=== PATIENT | female | born 1965 | race Caucasian/White ===

== ENCOUNTER 2017-01-03 02:38 | Emergency (ER) | payer BC ==
--- NOTE | 2017-01-03 06:25 | ED ORDER SUMMARY ---
..... Patient: TOMMIE GUNTER OrderSheet [facility] VisitID: [id number] [place] [address] 51y, F Registration Date/Time: 01/03/2017 ORDER SHEET Weight: 72.5 kg (stated) Allergies: No Known Drug Allergy GENERAL ORDERS: CT Head wo Cont Urgent (03:03 01/03/2017 Jonathan CRUZ) (Ack 3:13 CHagjozef ER Agricultural Equipment Test Engineer) (4:21 Opal) CT Cervical Spine wo Cont Urgent (03:04 01/03/2017 Jonathan CRUZ) (Ack 3:13 Umer ER [employer] Equipment Test Engineer) (4:21 Opal) CBC w Diff Urgent (03:04 01/03/2017 Jonathan CRUZ) (Ack 3:13 Umer ER [employer] Equipment Test Engineer) (3:14 JQuivey R.N.) CMP Urgent (03:04 01/03/2017 Jonathan CRUZ) (Ack 3:13 Umer ER Agricultural Equipment Test Engineer) (3:14 JQuivey R.N.) UA-Culture if indicated Urgent (03:04 01/03/2017 Jonathan CRUZ) (Ack 3:13 Umer ER [employer] Equipment Test Engineer) (3:52 JQuivey R.N.) Amylase Urgent (03:04 01/03/2017 Jonathan CRUZ) (Ack 3:13 Umer ER Agricultural Equipment Test Engineer) (3:14 JQuivey R.N.) Lipase Urgent (03:04 01/03/2017 Jonathan CRUZ) (Ack 3:13 Umer ER Agricultural Equipment Test Engineer) (3:14 JQuivey R.N.) Urine Urgent (03:04 01/03/2017 Jonathan CRUZ) (Ack 3:13 Umer ER [employer] Equipment Test Engineer) (3:52 JQuivey R.N.) Urine Drug Screen Urgent (03:04 01/03/2017 Jonathan CRUZ) (Ack 3:13 Umer ER [employer] Equipment Test Engineer) (3:52 JQuivey R.N.) Ethyl Alcohol Urgent (03:04 01/03/2017 Jonathan CRUZ) (Ack 3:13 Umer ER [employer] Equipment Test Engineer) (3:14 JQuivey R.N.) MEDICATION ORDERS: IV FLUIDS: IV NS : initial bolus 1000 mL (1000 mL/hr), then 200 mL/hr for 4h (NOW); Urgent (03:04 01/03/2017 Jonathan CRUZ) (3:15 Chance Sinha) Zofran IV 8 mg (NOW) (03:04 01/03/2017 Jonathan CRUZ) (Ack 3:16 Chance Sinha) (3:19 Chance Sinha) ORDER SHEET NOTES: [Electronically signed by Иван Salgado R.N. (06:59 01/03/2017)] [Electronically signed by Parag Goel MD (15:43 01/06/2017)] [Electronically locked/signed by Иван Salgado R.N. (06:59 01/03/2017)]
--- NOTE | 2017-01-03 06:25 | ED CLINICAL REPORT ---
Clinical Report - Physicians/Mid Levels [facility] [address] [place] [address] 01/03/2017 2:41 Patient: TOMMIE GUNTER Time Seen: 02:44. Arrived- By ambulance. Historian- patient, EMS personnel and spouse. History limited by intoxication. Physical Exam limited by intoxication. HISTORY OF PRESENT ILLNESS Chief Complaint: FALL. Location of injuries- (possible loss of conciousness). [facility] Fell ("collapsed"). ([facility] parking [place]). The patient denies pain. No blow to the head or neck pain. The patient had loss of consciousness. (possibly). REVIEW OF SYSTEMS Unobtainable due to patient's altered mental status. PAST HISTORY Problems: Depression. Additional Surgeries: no known surgeries. Medications: PROzac Oral 80mg, daily. Allergies: No Known Drug Allergy. SOCIAL HISTORY Alcohol use; consumes six beers a week. (her reports that she had 6 or 7 beers tonight). FAMILY HISTORY No significant family medical history. ADDITIONAL NOTES The nursing notes have been reviewed. PHYSICAL EXAM Vital Signs: 01/03/2017 02:47 BP: 76/49. HR: 62. RR: 18. O2 saturation: 92%. Temp: 97.9 F. Pain level now: 0/10. Have been reviewed. Appearance: Alert. She appears intoxicated, has ETOH on breath and appears unkempt and older than stated age. Head: Head non-tender. No swelling of head. Eyes: Pupils equal, round and reactive to light. ENT: No dental injury. Pharynx normal. Neck: Painless ROM. Non-tender. No vertebral tenderness. CVS: Heart sounds normal. Pulses normal. Respiratory: Breath sounds normal. Abdomen: No visible injury. Soft and nontender. Bowel sounds normal. No organomegaly. No mass. Back: No tenderness. Skin: Skin warm and dry. Extremities: Pelvis stable. No lower extremity edema. LABS, X-RAYS, AND EKG EKG: Normal EKG. Rate: 62. Prior EKG unavailable. The study has been independently viewed by me. CT C-Spine: No acute disease. CT Head: No acute disease. Laboratory Tests: UA-Culture if indicated: (SAURABH: 01/03/2017 03:24) ( [facility] 01/03/2017 03:45) Final results Test Result Flag Units (Reference) URINE COLOR YELLOW URINE APPEARANCE CLEAR URINE GLUCOSE NEGATIVE (NEGATIVE) URINE BILIRUBIN NEGATIVE (NEGATIVE) URINE KETONE NEGATIVE (NEGATIVE) URINE SPECIFIC GRAVITY <= 1.005 L (1.010-1.030) URINE PH 6.0 (5.0-8.0) URINE PROTEIN NEGATIVE (NEGATIVE) URINE UROBILINOGEN 0.2 EU/dL (0.2-1.0) URINE NITRITE NEGATIVE (NEGATIVE) URINE BLOOD 1+ (NEGATIVE) URINE LEUK ESTERASE NEGATIVE (NEGATIVE) URINE RBC 0-1 rbc/hpf (0-1) URINE WBC 0-1 wbc/hpf (0-1) URINE EPITHELIAL CELLS 0-1 EPI/hpf (0-5) URINE BACTERIA NONE SEEN (NONE SEEN) URINE COMMENT CULT NOT INDICATED URINE CULTURES ARE SET-UP BASED ON THE FOLLOWING CRITERIA:POSITIVE NITRITEPOSITIVE LEUKOCYTE ESTERASEGREATER THAN 10 WHITE BLOOD CELLSMODERATE (2+) OR GREATER BACTERIA Urine: (SAURABH: 01/03/2017 03:24) ( [facility] 01/03/2017 03:37) Final results Test Result Flag Units (Reference) URINE NEGATIVE CBC w Diff: (SAURABH: 01/03/2017 03:00) ( [facility] 01/03/2017 03:22) Final results Test Result Flag Units (Reference) WHITE BLOOD COUNT 5.4 K/uL (4.5-11.5) RED BLOOD COUNT 4.09 M/uL (4.00-5.20) HEMOGLOBIN 12.6 gm/dL (12.0-16.0) HEMATOCRIT 37.7 % (36.0-46.0) MEAN CELL VOLUME 92 fL (80-100) MEAN CORPUSCULAR HGB 31 pg (26-34) MEAN CORPUSCULAR HGB CONC 34 g/dL (31-37) RED CELL DISTRIBUTION WIDTH 13.6 % (11.6-14.8) PLATELET COUNT 330 K/uL (150-400) NEUTROPHIL % 58.6 % (50-75) LYMPH % 31.3 % (25-40) MONO % 8.5 % (3-14) EOSINOPHIL % 1.1 % (0-4) BASOPHIL % 0.5 % (0-2) Urine Drug Screen: (SAURABH: 01/03/2017 03:24) ( [facility] 01/03/2017 03:45) Final results Test Result Flag Units (Reference) AMPHETAMINE/METHAMPHETAMINE NEGATIVE (NEGATIVE) BARBITURATE NEGATIVE (NEGATIVE) BENZODIAZEPINE NEGATIVE (NEGATIVE) CANNABINOID POSITIVE H (NEGATIVE) COCAINE NEGATIVE (NEGATIVE) ECSTASY NEGATIVE (NEGATIVE) METHADONE NEGATIVE (NEGATIVE) OPIATE NEGATIVE (NEGATIVE) The urine drug screen is a qualitative screening test fordrug overdose and abuse. All screen results should beconsidered as presumptive.Drugs screened for are as follows:BenzodiazepinesCocaineAmphetamines/MetamphetaminesTHC (Tetrahydrocannabinol)OpiatesBarbituratesEcstasyMethadonePositive results are unconfirmed. For confirmation, notifythe lab for the specimen to be sent to the reference lab.All confirmations must be performed by a differentmethodology.The ingestion of natural herbal and plant productscontaining Ephedra/Ephedra metabolites can produce in urineone or more substances capable of cross reacting withamphetamine/methamphetamine immunoassays. These testsprovide a preliminary result only. A more specificalternative chemical method must be used to obtain aconfirmed analytical result. CMP: (SAURABH: 01/03/2017 03:00) ( [facility] 01/03/2017 03:41) Final results Test Result Flag Units (Reference) GLUCOSE 103 mg/dL (70-110) BUN 11 mg/dL (7-18) CREATININE 0.8 mg/dL (0.6-1.3) Estimated GFR >60 mL/min Estimated GFR- >60 mL/min Note: Persistent reduction over 3 months in eGFR<60 mL/min/1.73 m2 defines CKD. Patients with eGFR values>=60 mL/min/1.73 m2 may also have CKD if evidence ofpersistent proteinuria. Additional information may be foundat www.kidney.org. SODIUM 135 L mmol/L (136-145) POTASSIUM 3.6 mmol/L (3.5-5.1) CHLORIDE 100 mmol/L (98-107) CARBON DIOXIDE 23 mmol/L (21-32) CALCIUM 7.7 L mg/dL (8.5-10.1) TOTAL PROTEIN 7.3 g/dL (6.4-8.2) ALBUMIN 3.4 g/dL (3.3-5.0) BILIRUBIN, TOTAL 0.2 mg/dL (0.0-1.0) ALKALINE PHOSPHATASE 57 U/L (46-116) AST (SGOT) 17 U/L (15-37) ALT (SGPT) 25 U/L (12-78) LIPASE 102 U/L (73-393) AMYLASE 58 U/L (25-115) ETHYL ALCOHOL 362 H mg/dL (3-10) . PROGRESS AND PROCEDURES Course of Care: Symptoms better. Vital signs have been reviewed. Physical exam findings are improved. Alert. Breath sounds normal. No respiratory distress. Normal heart rate and rhythm. Heart sounds normal. Abdomen soft and nontender. Skin warm and dry. Patient/family counseled. Old medical records ordered. Old records unavailable. Disposition: Discharged. Condition: stable. CLINICAL IMPRESSION Substance abuse- alcohol, marijuana with intoxication. INSTRUCTIONS No driving or operating machinery while taking medication. Warnings: GENERAL WARNINGS: Return or contact your physician immediately if your condition worsens or changes unexpectedly, if not improving as expected, or if other problems arise. Understanding of the discharge instructions verbalized by patient and family. (Electronically signed by Parag Goel MD 01/06/2017 15:43)
--- NOTE | 2017-01-03 06:25 | ED ORDER SUMMARY ---
..... Patient: TOMMIE GUNTER OrderSheet [facility] VisitID: [id number] [place] [address] 51y, F Registration Date/Time: 01/03/2017 ORDER SHEET Weight: 72.5 kg (stated) Allergies: No Known Drug Allergy GENERAL ORDERS: CT Head wo Cont Urgent (03:03 01/03/2017 Jonathan CRUZ) (Ack 3:13 CHagjozef ER [employer]) (4:21 Opal) CT Cervical Spine wo Cont Urgent (03:04 01/03/2017 Jonathan CRUZ) (Ack 3:13 Umer ER [employer]) (4:21 [place]) CBC w Diff Urgent (03:04 01/03/2017 Jonathan CRUZ) (Ack 3:13 Umer ER [employer]) (3:14 JQuivey R.N.) CMP Urgent (03:04 01/03/2017 Jonathan CRUZ) (Ack 3:13 Umer ER [employer]) (3:14 JQuivey R.N.) UA-Culture if indicated Urgent (03:04 01/03/2017 Jonathan CRUZ) (Ack 3:13 Umer ER [employer]) (3:52 JQuivey R.N.) Amylase Urgent (03:04 01/03/2017 Jonathan CRUZ) (Ack 3:13 Umer ER [employer]) (3:14 JQuivey R.N.) Lipase Urgent (03:04 01/03/2017 Jonathan CRUZ) (Ack 3:13 Umer ER [employer]) (3:14 JQuivey R.N.) Urine Urgent (03:04 01/03/2017 Jonathan CRUZ) (Ack 3:13 Umer ER [employer]) (3:52 JQuivey R.N.) Urine Drug Screen Urgent (03:04 01/03/2017 Jonathan CRUZ) (Ack 3:13 Umer ER [employer]) (3:52 JQuivey R.N.) Ethyl Alcohol Urgent (03:04 01/03/2017 Jonathan CRUZ) (Ack 3:13 Umer ER [employer]) (3:14 JQuivey R.N.) MEDICATION ORDERS: IV FLUIDS: IV NS : initial bolus 1000 mL (1000 mL/hr), then 200 mL/hr for 4h (NOW); Urgent (03:04 01/03/2017 Jonathan CRUZ) (3:15 Chance Sinha) Zofran IV 8 mg (NOW) (03:04 01/03/2017 Jonathan CRUZ) (Ack 3:16 Chance Sinha) (3:19 Chance Sinha) ORDER SHEET NOTES: [Electronically signed by Иван Salgado R.N. (06:59 01/03/2017)] [Electronically signed by Parag Goel MD (15:43 01/06/2017)] [Electronically locked/signed by Иван Salgado R.N. (06:59 01/03/2017)]
--- NOTE | 2017-01-03 06:25 | ED CLINICAL REPORT ---
Clinical Report - Physicians/Mid Levels [facility] [address] [place] [address] 01/03/2017 2:41 Patient: TOMMIE GUNTER Time Seen: 02:44. Arrived- By ambulance. Historian- patient, EMS personnel and spouse. History limited by intoxication. Physical Exam limited by intoxication. HISTORY OF PRESENT ILLNESS Chief Complaint: FALL. Location of injuries- (possible loss of conciousness). The [facility] [facility] Fell ("collapsed"). ([facility] parking lot). The patient denies pain. No blow to the head or neck pain. The patient had loss of consciousness. (possibly). REVIEW OF SYSTEMS Unobtainable due to patient's altered mental status. PAST HISTORY Problems: Depression. Additional Surgeries: no known surgeries. Medications: PROzac Oral 80mg, daily. Allergies: No Known Drug Allergy. SOCIAL HISTORY Alcohol use; consumes six beers a week. (her reports that she had 6 or 7 beers tonight). FAMILY HISTORY No significant family medical history. ADDITIONAL NOTES The nursing notes have been reviewed. PHYSICAL EXAM Vital Signs: 01/03/2017 02:47 BP: 76/49. HR: 62. RR: 18. O2 saturation: 92%. Temp: 97.9 F. Pain level now: 0/10. Have been reviewed. Appearance: Alert. She appears intoxicated, has ETOH on breath and appears unkempt and older than stated age. Head: Head non-tender. No swelling of head. Eyes: Pupils equal, round and reactive to light. ENT: No dental injury. Pharynx normal. Neck: Painless ROM. Non-tender. No vertebral tenderness. CVS: Heart sounds normal. Pulses normal. Respiratory: Breath sounds normal. Abdomen: No visible injury. Soft and nontender. Bowel sounds normal. No organomegaly. No mass. Back: No tenderness. Skin: Skin warm and dry. Extremities: Pelvis stable. No lower extremity edema. LABS, X-RAYS, AND EKG EKG: Normal EKG. Rate: 62. Prior EKG unavailable. The study has been independently viewed by me. CT C-Spine: No acute disease. CT Head: No acute disease. Laboratory Tests: UA-Culture if indicated: (SAURABH: 01/03/2017 03:24) ( [facility] 01/03/2017 03:45) Final results Test Result Flag Units (Reference) URINE COLOR YELLOW URINE APPEARANCE CLEAR URINE GLUCOSE NEGATIVE (NEGATIVE) URINE BILIRUBIN NEGATIVE (NEGATIVE) URINE KETONE NEGATIVE (NEGATIVE) URINE SPECIFIC GRAVITY <= 1.005 L (1.010-1.030) URINE PH 6.0 (5.0-8.0) URINE PROTEIN NEGATIVE (NEGATIVE) URINE UROBILINOGEN 0.2 EU/dL (0.2-1.0) URINE NITRITE NEGATIVE (NEGATIVE) URINE BLOOD 1+ (NEGATIVE) URINE LEUK ESTERASE NEGATIVE (NEGATIVE) URINE RBC 0-1 rbc/hpf (0-1) URINE WBC 0-1 wbc/hpf (0-1) URINE EPITHELIAL CELLS 0-1 EPI/hpf (0-5) URINE BACTERIA NONE SEEN (NONE SEEN) URINE COMMENT CULT NOT INDICATED URINE CULTURES ARE SET-UP BASED ON THE FOLLOWING CRITERIA:POSITIVE NITRITEPOSITIVE LEUKOCYTE ESTERASEGREATER THAN 10 WHITE BLOOD CELLSMODERATE (2+) OR GREATER BACTERIA Urine: (SAURABH: 01/03/2017 03:24) ( [facility] 01/03/2017 03:37) Final results Test Result Flag Units (Reference) URINE NEGATIVE CBC w Diff: (SAURABH: 01/03/2017 03:00) ( [facility] 01/03/2017 03:22) Final results Test Result Flag Units (Reference) WHITE BLOOD COUNT 5.4 K/uL (4.5-11.5) RED BLOOD COUNT 4.09 M/uL (4.00-5.20) HEMOGLOBIN 12.6 gm/dL (12.0-16.0) HEMATOCRIT 37.7 % (36.0-46.0) MEAN CELL VOLUME 92 fL (80-100) MEAN CORPUSCULAR HGB 31 pg (26-34) MEAN CORPUSCULAR HGB CONC 34 g/dL (31-37) RED CELL DISTRIBUTION WIDTH 13.6 % (11.6-14.8) PLATELET COUNT 330 K/uL (150-400) NEUTROPHIL % 58.6 % (50-75) LYMPH % 31.3 % (25-40) MONO % 8.5 % (3-14) EOSINOPHIL % 1.1 % (0-4) BASOPHIL % 0.5 % (0-2) Urine Drug Screen: (SAURABH: 01/03/2017 03:24) ( [facility] 01/03/2017 03:45) Final results Test Result Flag Units (Reference) AMPHETAMINE/METHAMPHETAMINE NEGATIVE (NEGATIVE) BARBITURATE NEGATIVE (NEGATIVE) BENZODIAZEPINE NEGATIVE (NEGATIVE) CANNABINOID POSITIVE H (NEGATIVE) COCAINE NEGATIVE (NEGATIVE) ECSTASY NEGATIVE (NEGATIVE) METHADONE NEGATIVE (NEGATIVE) OPIATE NEGATIVE (NEGATIVE) The urine drug screen is a qualitative screening test fordrug overdose and abuse. All screen results should beconsidered as presumptive.Drugs screened for are as follows:BenzodiazepinesCocaineAmphetamines/MetamphetaminesTHC (Tetrahydrocannabinol)OpiatesBarbituratesEcstasyMethadonePositive results are unconfirmed. For confirmation, notifythe lab for the specimen to be sent to the reference lab.All confirmations must be performed by a differentmethodology.The ingestion of natural herbal and plant productscontaining Ephedra/Ephedra metabolites can produce in urineone or more substances capable of cross reacting withamphetamine/methamphetamine immunoassays. These testsprovide a preliminary result only. A more specificalternative chemical method must be used to obtain aconfirmed analytical result. CMP: (SAURABH: 01/03/2017 03:00) ( [facility] 01/03/2017 03:41) Final results Test Result Flag Units (Reference) GLUCOSE 103 mg/dL (70-110) BUN 11 mg/dL (7-18) CREATININE 0.8 mg/dL (0.6-1.3) Estimated GFR >60 mL/min Estimated GFR- >60 mL/min Note: Persistent reduction over 3 months in eGFR<60 mL/min/1.73 m2 defines CKD. Patients with eGFR values>=60 mL/min/1.73 m2 may also have CKD if evidence ofpersistent proteinuria. Additional information may be foundat www.kidney.org. SODIUM 135 L mmol/L (136-145) POTASSIUM 3.6 mmol/L (3.5-5.1) CHLORIDE 100 mmol/L (98-107) CARBON DIOXIDE 23 mmol/L (21-32) CALCIUM 7.7 L mg/dL (8.5-10.1) TOTAL PROTEIN 7.3 g/dL (6.4-8.2) ALBUMIN 3.4 g/dL (3.3-5.0) BILIRUBIN, TOTAL 0.2 mg/dL (0.0-1.0) ALKALINE PHOSPHATASE 57 U/L (46-116) AST (SGOT) 17 U/L (15-37) ALT (SGPT) 25 U/L (12-78) LIPASE 102 U/L (73-393) AMYLASE 58 U/L (25-115) ETHYL ALCOHOL 362 H mg/dL (3-10) . PROGRESS AND PROCEDURES Course of Care: Symptoms better. Vital signs have been reviewed. Physical exam findings are improved. Alert. Breath sounds normal. No respiratory distress. Normal heart rate and rhythm. Heart sounds normal. Abdomen soft and nontender. Skin warm and dry. Patient/family counseled. Old medical records ordered. Old records unavailable. Disposition: Discharged. Condition: stable. CLINICAL IMPRESSION Substance abuse- alcohol, marijuana with intoxication. INSTRUCTIONS No driving or operating machinery while taking medication. Warnings: GENERAL WARNINGS: Return or contact your physician immediately if your condition worsens or changes unexpectedly, if not improving as expected, or if other problems arise. Understanding of the discharge instructions verbalized by patient and family. (Electronically signed by Parag Goel MD 01/06/2017 15:43)
--- NOTE | 2017-01-03 06:25 | ED NURSING NOTES ---
Clinical Report - Nurses [facility] [place] [address] 01/03/2017 2:41 [id number] Triage time 02:47. Acuity: LEVEL 2. Chief Complaint: FALL (GLF). 03:07. Alert. SEPSIS SCREEN: Sepsis Screen. Negative (no infection suspected/documented). CECILIA COMA SCORE: [place] Coma Scale: 15- eyes open spontaneously (4); best verbal response- oriented x 4 (5); best motor response- obeys commands (6). --03:07 Иван Salgado R.N. 02:47 01/03/17. BP: 76/49. HR: 62. RR: 18. O2 saturation: 92%. Temp: 97.9 F (oral). Pain level now: 0/10. --03:07 Иван Salgado R.N. Weight: 72.5 kg stated. Height/Length: 64 inches Per Patient. BMI: 27.5. --03:02 Иван Salgado R.N. Medications PROzac Oral 80mg, daily. --02:59 Иван Salgado R.N. Allergies No Known Drug Allergy. --03:00 Иван Salgado R.N. Medication/allergy information source: the patient and patient's family. --03:07 Иван Salgado R.N. History Historian: EMS and patient. Accompanied by spouse. Primary physician (Pt can't remember). This occurred (30 minutes ago). Occurred ([place]). Trauma activation: Pre-hospital notification of patient arrival was received. Treatment PLATE MAKER ZINC: EMS treatment PLATE MAKER ZINC verbally communicated. Patient placed on backboard. PAST MEDICAL HX: Tetanus status: up-to-date. Immunizations: up-to-date. Last normal menstrual period- months ago. SOCIAL HX: Regular alcohol use; consumes six beers a week. Patient smells of ETOH in the emergency department (Spouse states pt had 6 -7 beers tonight). No drug use. ABUSE ASSESSMENT: No report of abuse. FALL RISK ASSESSMENT: Fall risk assessment completed. No fall risk identified. NUTRITIONAL RISK ASSESSMENT: The nutritional risk assessment revealed no deficiencies. FUNCTIONAL ASSESSMENT: Functional assessment: no impairments noted. LEARNING NEEDS ASSESSMENT: The learning needs assessment revealed no barriers. SKIN INTEGRITY ASSESSMENT: Skin integrity risk assessment completed. No skin integrity risk identified. --03:07 Иван Salgado R.N. PROBLEMS: Depression. --03:00 Иван Salgado R.N. ADDITIONAL SURGERIES: no known surgeries. Interventions ID band on patient. To treatment room. --03:07 Иван Salgado R.N. 02:28 01/03/2017 Site #1 started prior to arrival by EMS via IV in the left antecubital space with an 18g angiocath. --02:59 Иван Salgado R.N. PHYSICAL ASSESSMENT 02:47. To room via stretcher. Patient gowned. GENERAL / NEURO / PSYCH: Alert. Oriented X 4. ( Slurred speech). RESPIRATORY: Respirations not labored. SKIN: Skin intact. Skin is warm and dry. --03:11 Иван Salgado R.N. NURSING PROGRESS NOTES 02:52. Two patient identifiers checked. Call light placed in reach. Side rails up x 2. Bed placed in lowest position. Brakes of bed on. Patient ready for evaluation- chart flagged. --03:02 Иван Salgado R.N. 02:54 Dr. Goel notified of pt BP. --03:03 Иван Salgado R.N. 02:55 Dr. Goel in room with pt - pt vomited, pt incontinent of urine,rolled onto right side, mouth suctioned. --03:05 Иван Salgado R.N. 02:59 Patient log rolled,removed from backboard by 2 RN's [address] Goel. --03:06 Иван Salgado R.N. 03:03 Wet clothing removed. --03:07 Иван Salgado R.N. 03:08. Patient ID band checked for patient name and birthdate: patient confirmed. Blood samples drawn from the right antecubital space with 22g butterfly by nurse ; labeled in presence of the patient and sent to lab: yaniv lopez. (by Macey HODGE). --03:11 Иван Salgado R.N. 03:11 01/03/17. BP: 99/67. HR: 89. RR: 17. O2 saturation: 88%. --03:13 Иван Salgado R.N. 03:13. Oxygen administered by nasal cannula at 4 liters. --03:14 Иван Salgado R.N. 02:50 01/03/2017 Started bag #1 1000 mL IV Fluids IV NS (Saline); at 1000 mL/hr over 1 hour(s) via site #1 --03:15 Иван Salgado R.N. 03:19 01/03/2017 Zofran (Ondansetron HCl) IVP 8 mg given over 2 minute(s) via site #1. Allergies verified and confirmed 5 rights. IV patency established. IV site checked: no pain, redness, or swelling. IV flushed thoroughly pre- and post-medication administration. --03:19 Иван Salgado R.N. 8 fr in/out catheterization. During procedure hand hygiene observed and sterile equipment and aseptic technique used. Return of yellow-colored dayanna-colored clear urine. It was a complicated placement. She tolerated procedure well. Patient ID band checked for patient name and birthdate: patient confirmed. Catheterized urine collected with return of yellow-colored dayanna-colored clear urine; sample sent to lab. Specimen labeled in the presence of the patient. --03:28 Sarita Benitez R.N. EKG time: (0249). EKG was performed by a tech and shown to the ED physician. ( Performed per AYESHA VO). --03:30 Semaj Cline ER Tech1 03:42 01/03/2017 IV Fluids IV NS Bag Change: bag #1 infused. Total amount infused: 1000. STARTED bag #2 at 200 mL/hr. IV patency established. IV site checked: no pain, redness, or swelling. IV flushed thoroughly. --03:42 Иван Salgado R.N. The patient is calm and resting quietly. GENERAL / NEURO / PSYCH: Alert. Oriented X 4. RESPIRATORY: No respiratory distress. --03:44 Иван Salgado R.N. 03:43 01/03/17. BP: 92/64. HR: 85. RR: 17. O2 saturation: 92% on nasal cannula at 4 liters/minute. --03:44 Иван Salgado R.N. 03:51. Patient transported to [place] by stretcher with tech. --03:51 Иван Salgado R.N. Cardiac rhythm: normal sinus rhythm. The patient is calm and resting quietly. RESPIRATORY: No respiratory distress. --04:50 Иван Salgado R.N. 04:49 01/03/17. BP: 90/63. HR: 88. RR: 16. O2 saturation: 98% on nasal cannula at 4 liters/minute. Pain level now: 0/10. --04:50 Иван Salgado R.N. 04:50. Oxygen decreased to 2 liters. --04:50 Иван Salgado R.N. 06:08 Patient removed 02 prior to checking on pt. --06:09 Иван Salgado R.N. Cardiac rhythm: normal sinus rhythm. The patient is calm and resting quietly. GENERAL / NEURO / PSYCH: Alert. Oriented X 4. RESPIRATORY: No respiratory distress. --06:09 Иван Salgado R.N. 06:09 01/03/17. BP: 91/63. HR: 88. RR: 16. O2 saturation: 94% on room air. Pain level now: 0/10. --06:09 Иван Salgado R.N. 06:13 Patient assisted to restroom. --06:14 Иван Salgado R.N. 06:18 Patient back in bed. --06:54 Иван Salgado R.N. 06:59. The patient is calm and resting quietly. GENERAL / NEURO / PSYCH: Alert. Oriented X 4. RESPIRATORY: No respiratory distress. --06:55 Иван Salgado R.N. DISPOSITION / DISCHARGE 06:42 01/03/2017 IV Fluids IV NS Discontinued: bag #2 STOPPED upon discharge. Total amount infused: 550 mL. IV patency established. IV site checked: no pain, redness, or swelling. IV flushed thoroughly. --06:51 Иван Salgado R.N. 06:45 01/03/2017 Site #1 removed upon discharge. Catheter intact. Bandage applied. --06:51 Иван Salgado R.N. Departure time: 06:51. Condition at departure: stable. No learning barriers present. Discharge instructions provided and reviewed with the patient and spouse. Patient and spouse verbalized understanding. Written instructions provided in Iranian. The patient was discharged home and accompanied by spouse. She left the Emergency Department ambulatory and via taxi. FALL RISK ASSESSMENT: Fall risk assessment completed. No fall risk identified. --06:53 Иван Salgado R.N. 06:41 01/03/17. BP: 92/53. HR: 86. RR: 16. O2 saturation: 93% on room air. Pain level now: 0/10. --06:53 Иван Salgado R.N. Locked/Released at 01/03/2017 6:59 by Иван Salgado R.N.
--- NOTE | 2017-01-03 06:25 | ED NURSING NOTES ---
Clinical Report - Nurses [facility] [place] [address] 01/03/2017 2:41 [id number] Triage time 02:47. Acuity: LEVEL 2. Chief Complaint: FALL (GLF). 03:07. Alert. SEPSIS SCREEN: Sepsis Screen. Negative (no infection suspected/documented). CECILIA COMA SCORE: [place] Coma Scale: 15- eyes open spontaneously (4); best verbal response- oriented x 4 (5); best motor response- obeys commands (6). --03:07 Иван Salgado R.N. 02:47 01/03/17. BP: 76/49. HR: 62. RR: 18. O2 saturation: 92%. Temp: 97.9 F (oral). Pain level now: 0/10. --03:07 Иван Salgado R.N. Weight: 72.5 kg stated. Height/Length: 64 inches Per Patient. BMI: 27.5. --03:02 Иван Salgado R.N. Medications PROzac Oral 80mg, daily. --02:59 Иван Salgado R.N. Allergies No Known Drug Allergy. --03:00 Иван Salgado R.N. Medication/allergy information source: the patient and patient's family. --03:07 Иван Salgado R.N. History Historian: EMS and patient. Accompanied by spouse. Primary physician (Pt can't remember). This occurred (30 minutes ago). Occurred ([place]). Trauma activation: Pre-hospital notification of patient arrival was received. Treatment DIGITAL ARTIST: EMS treatment DIGITAL ARTIST verbally communicated. Patient placed on backboard. PAST MEDICAL HX: Tetanus status: up-to-date. Immunizations: up-to-date. Last normal menstrual period- months ago. SOCIAL HX: Regular alcohol use; consumes six beers a week. Patient smells of ETOH in the emergency department (Spouse states pt had 6 -7 beers tonight). No drug use. ABUSE ASSESSMENT: No report of abuse. FALL RISK ASSESSMENT: Fall risk assessment completed. No fall risk identified. NUTRITIONAL RISK ASSESSMENT: The nutritional risk assessment revealed no deficiencies. FUNCTIONAL ASSESSMENT: Functional assessment: no impairments noted. LEARNING NEEDS ASSESSMENT: The learning needs assessment revealed no barriers. SKIN INTEGRITY ASSESSMENT: Skin integrity risk assessment completed. No skin integrity risk identified. --03:07 Иван Salgado R.N. PROBLEMS: Depression. --03:00 вИан Salgado R.N. ADDITIONAL SURGERIES: no known surgeries. Interventions ID band on patient. To treatment room. --03:07 Иван Salgado R.N. 02:28 01/03/2017 Site #1 started prior to arrival by EMS via IV in the left antecubital space with an 18g angiocath. --02:59 Иван Salgado R.N. PHYSICAL ASSESSMENT 02:47. To room via stretcher. Patient gowned. GENERAL / NEURO / PSYCH: Alert. Oriented X 4. ( Slurred speech). RESPIRATORY: Respirations not labored. SKIN: Skin intact. Skin is warm and dry. --03:11 Иван Salgado R.N. NURSING PROGRESS NOTES 02:52. Two patient identifiers checked. Call light placed in reach. Side rails up x 2. Bed placed in lowest position. Brakes of bed on. Patient ready for evaluation- chart flagged. --03:02 Иван Salgado R.N. 02:54 Dr. Goel notified of pt BP. --03:03 Иван Salgado R.N. 02:55 Dr. Goel in room with pt - pt vomited, pt incontinent of urine,rolled onto right side, mouth suctioned. --03:05 Иван Salgado R.N. 02:59 Patient log rolled,removed from backboard by 2 RN's [address] Goel. --03:06 Иван Salgado R.N. 03:03 Wet clothing removed. --03:07 Иван Salgado R.N. 03:08. Patient ID band checked for patient name and birthdate: patient confirmed. Blood samples drawn from the right antecubital space with 22g butterfly by nurse ; labeled in presence of the patient and sent to lab: yaniv lopez. (by Macey HODGE). --03:11 Иван Salgado R.N. 03:11 01/03/17. BP: 99/67. HR: 89. RR: 17. O2 saturation: 88%. --03:13 Иван Salgado R.N. 03:13. Oxygen administered by nasal cannula at 4 liters. --03:14 Иван Salgado R.N. 02:50 01/03/2017 Started bag #1 1000 mL IV Fluids IV NS (Saline); at 1000 mL/hr over 1 hour(s) via site #1 --03:15 Иван Salgado R.N. 03:19 01/03/2017 Zofran (Ondansetron HCl) IVP 8 mg given over 2 minute(s) via site #1. Allergies verified and confirmed 5 rights. IV patency established. IV site checked: no pain, redness, or swelling. IV flushed thoroughly pre- and post-medication administration. --03:19 Иван Salgado R.N. 8 fr in/out catheterization. During procedure hand hygiene observed and sterile equipment and aseptic technique used. Return of yellow-colored dayanna-colored clear urine. It was a complicated placement. She tolerated procedure well. Patient ID band checked for patient name and birthdate: patient confirmed. Catheterized urine collected with return of yellow-colored dayanna-colored clear urine; sample sent to lab. Specimen labeled in the presence of the patient. --03:28 Sartia Benitez R.N. EKG time: (0249). EKG was performed by a tech and shown to the ED physician. ( Performed per AYESHA VO). --03:30 Semaj Cline ER Tech1 03:42 01/03/2017 IV Fluids IV NS Bag Change: bag #1 infused. Total amount infused: 1000. STARTED bag #2 at 200 mL/hr. IV patency established. IV site checked: no pain, redness, or swelling. IV flushed thoroughly. --03:42 Иван Salgado R.N. The patient is calm and resting quietly. GENERAL / NEURO / PSYCH: Alert. Oriented X 4. RESPIRATORY: No respiratory distress. --03:44 Иван Salgado R.N. 03:43 01/03/17. BP: 92/64. HR: 85. RR: 17. O2 saturation: 92% on nasal cannula at 4 liters/minute. --03:44 Иван Salgado R.N. 03:51. Patient transported to [place] by stretcher with tech. --03:51 Иван Salgado R.N. Cardiac rhythm: normal sinus rhythm. The patient is calm and resting quietly. RESPIRATORY: No respiratory distress. --04:50 Иван Salgado R.N. 04:49 01/03/17. BP: 90/63. HR: 88. RR: 16. O2 saturation: 98% on nasal cannula at 4 liters/minute. Pain level now: 0/10. --04:50 Иван Salgado R.N. 04:50. Oxygen decreased to 2 liters. --04:50 Иван Salgado R.N. 06:08 Patient removed 02 prior to checking on pt. --06:09 Иван Salgado R.N. Cardiac rhythm: normal sinus rhythm. The patient is calm and resting quietly. GENERAL / NEURO / PSYCH: Alert. Oriented X 4. RESPIRATORY: No respiratory distress. --06:09 Иван Salgado R.N. 06:09 01/03/17. BP: 91/63. HR: 88. RR: 16. O2 saturation: 94% on room air. Pain level now: 0/10. --06:09 Иван Salgado R.N. 06:13 Patient assisted to restroom. --06:14 Иван Salgado R.N. 06:18 Patient back in bed. --06:54 Иван Salgado R.N. 06:59. The patient is calm and resting quietly. GENERAL / NEURO / PSYCH: Alert. Oriented X 4. RESPIRATORY: No respiratory distress. --06:55 Иван Salgado R.N. DISPOSITION / DISCHARGE 06:42 01/03/2017 IV Fluids IV NS Discontinued: bag #2 STOPPED upon discharge. Total amount infused: 550 mL. IV patency established. IV site checked: no pain, redness, or swelling. IV flushed thoroughly. --06:51 Иван Salgado R.N. 06:45 01/03/2017 Site #1 removed upon discharge. Catheter intact. Bandage applied. --06:51 Иван Salgaod R.N. Departure time: 06:51. Condition at departure: stable. No learning barriers present. Discharge instructions provided and reviewed with the patient and spouse. Patient and spouse verbalized understanding. Written instructions provided in Ugandan. The patient was discharged home and accompanied by spouse. She left the Emergency Department ambulatory and via taxi. FALL RISK ASSESSMENT: Fall risk assessment completed. No fall risk identified. --06:53 Иван Salgado R.N. 06:41 01/03/17. BP: 92/53. HR: 86. RR: 16. O2 saturation: 93% on room air. Pain level now: 0/10. --06:53 Иван Salgado R.N. Locked/Released at 01/03/2017 6:59 by Иван Salgado R.N.
--- NOTE | 2017-01-03 06:56 | DIAGNOSTIC IMAGING REPORT ---
PROCEDURE: CT HEAD WITHOUT CONTRAST INDICATION: FALL TECHNIQUE: Noncontrast axial images with sagittal and coronal reformations. COMPARISON: None. FINDINGS: Sulci, ventricular system, and brain parenchyma are normal. No evidence of acute intracranial process. Visualized mastoids and sinuses are clear. Small foci of gas in the facial veins on the right side and adjacent to the cavernous sinus, likely related to venous access. IMPRESSION: 1. No acute intracranial abnormality 2. There are small foci of gas in the facial soft tissues and adjacent to the cavernous sinus, likely related to venous access. 3. Preliminary findings submitted by Dr. Torres, [facility] radiology.
--- NOTE | 2017-01-03 07:00 | DIAGNOSTIC IMAGING REPORT ---
PROCEDURE: CT CERVICAL SPINE W/O CONTRAST CLINICAL INDICATION: Ground level fall. TECHNIQUE: Noncontrast axial images with sagittal and coronal reformations. COMPARISON: None. FINDINGS: Normal alignment without fracture. Mild degenerative changes at C5-6. There are several foci of gas in the venous system likely due to venous access. IMPRESSION: 1. No acute changes 2. Preliminary results were by Dr. Torres, [facility] radiology. All CT scans at this facility use dose modulation, iterative reconstruction, and/or weight-based dosing when appropriate to reduce radiation dose to as low as reasonably achievable.
--- NOTE | 2017-01-06 15:44 | ED MAR SUMMARY ---
..... Medication Administration Record [facility] [address] [place] [address] Patient: TOMMIE GUNTER Visit ID: [id number] 51y, F Weight: 72.5 kg Height/Length: 64 in BMI: 27.5 ALLERGIES: No Known Drug Allergy Start 02:50 01/03/2017 Иван Salgado RAnjanaN., Stop 06:42 01/03/2017 Иван Salgado R.N. Medication Administered: IV NS (SALINE), Dose: IV Fluids over 1 hour(s), Rate: 1000 mL/hr, Dispensed: 1000 mL bag, Site: #1 left AC. Medication Ordered: IV NS : initial bolus 1000 mL (1000 mL/hr), then 200 mL/hr for 4h (NOW); Urgent. Given 03:19 01/03/2017 Иван Salgado, RAnjanaN. Medication Administered: ZOFRAN [IVP] (ONDANSETRON HCL), Dose: 8 mg IVP over 2 minute(s), Site: #1 left AC. Medication Ordered: Zofran IV 8 mg (NOW).
--- NOTE | 2017-01-06 15:44 | ED MED RECONCILIATION SUMMARY ---
Patient: TOMMIE GUNTER Medication Reconciliation Report [facility] VisitID: [id number] [address] [place] [address] 51y, F Registration Date/Time: 01/03/2017 Weight: 72.5 kg Height/Length: 64 in. BMI: 27.5 ALLERGIES: No Known Drug Allergy The patient's Home Medications are listed below: THE FOLLOWING MEDICATIONS NEED TO BE RECONCILED: PROzac Oral 80mg, daily The source(s) of the original Home Medication information: patient patient's family member The following Medications were given to the patient in the Emergency Department: IV NS IV Fluids bolus 0, then 1000 mL/hr, administered: 01/03/2017 2:50:00 AM Zofran [IVP] IVP 8 mg, administered: 01/03/2017 3:19:00 AM The following Medications were prescribed to the patient: None.
--- NOTE | 2017-01-06 15:44 | ED DISCHARGE INSTRUCTIONS ---
Patient: TOMMIE GUNTER General Instructions [facility] VisitID: [id number] [place] [address] 51y, F Registration Date/Time: 01/03/2017 Substance abuse- alcohol, marijuana with intoxication. INSTRUCTIONS No driving or operating machinery while taking medication. Warnings: GENERAL WARNINGS: Return or contact your physician immediately if your condition worsens or changes unexpectedly, if not improving as expected, or if other problems arise. Understanding of the discharge instructions verbalized by patient and family. ADDITIONAL INFORMATION Alcohol Intoxication Alcohol intoxication occurs when you drink alcohol faster than your liver can remove it from your system. Alcohol intoxication affects your judgment and coordination. Very high blood alcohol levels can cause coma, very slow breathing and even . If you drink alcohol every day, this may gradually cause permanent damage to your liver, brain, heart, pancreas and other organs. Alcohol use during may cause permanent damage to the growing baby. Home Care: Do not drink any more alcohol. DO NOT DRIVE until all effects of the alcohol have worn off. Get lots of rest over the next few days. Drink plenty of water and other non-alcoholic liquids. Try to eat regular meals. If you have been drinking heavily on a daily basis, you may go through alcohol withdrawl. This is also called the shakes or DTs. The usual symptoms last 3 to 4 days and may include nervousness, shakiness, nausea, sweating or sleeplessness. During this time, it is best that you stay with family or friends who can help and support you. You can also admit yourself to a residential detox program. If your symptoms are severe, contact your doctor for medicines to help. Follow Up: If alcohol is causing a problem in your life, these and other organizations can help you: Alcoholics Anonymous offers support through a self-help fellowship. There are no dues or fees. See the Yellow Pages and call for time and place of meetings. www.aa.org [employer] offers support to families of alcohol users. 483.803.1051 www.al-anon.org National Kaw On Alcoholism And Drug Dependence 343-839-2032 www.ncadd.org There are also inpatient or residential alcohol detox programs. Check the Internet or phonebook Yellow Pages under Drug Abuse & Treatment Centers. Get Prompt Medical Attention if any of the following occur: there) Marijuana Abuse Marijuana is the most widely used illegal drug in the [place]. It is called by various names such as pot, weed, blunts, grass, reefer, ganja, hash, hashish. It is usually smoked but can be mixed with foods or brewed as a tea. It is sometimes sold with PCP (Marcial Dust) or amphetamine mixed in it. These drugs can cause other harmful side effects. Marijuana can cause the following effects: Changes in mood (stimulated, happy, drowsy, depressed, paranoid) Hallucinations Increased heart rate and blood pressure Increased appetite Time distortion, difficulty concentrating, impaired memory Lung damage (similar to cigarettes with chronic cough, wheezing, frequent colds and bronchitis) You can become psychologically dependent on marijuana. That means the craving to use the drug is emotional or psychological rather than due to physical withdrawal. Is Marijuana Running Your Life? Here are some of the signs: Relying on marijuana to feel good, forget problems, deal with stress or to relax Wanting to be alone most of the time or only with others who use drugs Losing interest in things that used to be important Changes in school or job performance or attendance Spending a lot of time thinking about how to get marijuana Stealing or selling your things so you can buy marijuana Unable to stop using even though you may want to quit Increasing anxiety, anger,or depression Sleeping too much, changes in eating habits (weight loss or gain) Needing to use more to get the same effect Home Care Once you have become addicted to any drug, quitting is hard to do. Most people find they can't quit without help. So, dont try to do this alone. Talk to someone you trust who can support you. Seek professional help. Avoid people and places where drugs are used. That only increases the temptation to use. Follow Up with your doctor or as advised by our staff. For more information or a referral to a treatment center in your area, contact: Your local mental health center or the National Alcohol and Substance Abuse Information Center (708)-952-7504 www.addictioncareoptions.com National Kaw on Alcoholism and Drug Dependence 928-662-WDCD www.ncadd.org Marijuana Anonymous 964-714-0184 www.marijuana-anonymous.org Get Prompt Medical Attention if any of the following occur: You feel extreme depression, fear, anxiety, or anger toward yourself or others You feel out of control You feel that you may try to harm yourself or another You have been given the following additional information: Alcohol Intoxication Marijuana Abuse No driving or operating machinery while taking medication. (Electronically signed by Parag Goel MD 01/06/2017 15:43)
--- NOTE | 2017-01-06 15:44 | ED MED RECONCILIATION SUMMARY ---
Patient: TOMMIE GUNTER Medication Reconciliation Report [facility] VisitID: [id number] [address] [place] [address] 51y, F Registration Date/Time: 01/03/2017 Weight: 72.5 kg Height/Length: 64 in. BMI: 27.5 ALLERGIES: No Known Drug Allergy The patient's Home Medications are listed below: THE FOLLOWING MEDICATIONS NEED TO BE RECONCILED: PROzac Oral 80mg, daily The source(s) of the original Home Medication information: patient patient's family member The following Medications were given to the patient in the Emergency Department: IV NS IV Fluids bolus 0, then 1000 mL/hr, administered: 01/03/2017 2:50:00 AM Zofran [IVP] IVP 8 mg, administered: 01/03/2017 3:19:00 AM The following Medications were prescribed to the patient: None.
--- NOTE | 2017-01-06 15:44 | ED MAR SUMMARY ---
..... Medication Administration Record [facility] [address] [place] [address] Patient: TOMMIE GUNTER Visit ID: [id number] 51y, F Weight: 72.5 kg Height/Length: 64 in BMI: 27.5 ALLERGIES: No Known Drug Allergy Start 02:50 01/03/2017 Иван Salgado RAnjanaN., Stop 06:42 01/03/2017 Иван Salgado R.N. Medication Administered: IV NS (SALINE), Dose: IV Fluids over 1 hour(s), Rate: 1000 mL/hr, Dispensed: 1000 mL bag, Site: #1 left AC. Medication Ordered: IV NS : initial bolus 1000 mL (1000 mL/hr), then 200 mL/hr for 4h (NOW); Urgent. Given 03:19 01/03/2017 Иван Salgado, RAnjanaN. Medication Administered: ZOFRAN [IVP] (ONDANSETRON HCL), Dose: 8 mg IVP over 2 minute(s), Site: #1 left AC. Medication Ordered: Zofran IV 8 mg (NOW).
--- NOTE | 2017-01-06 15:44 | ED DISCHARGE INSTRUCTIONS ---
Patient: TOMMIE GUNTER General Instructions [facility] VisitID: [id number] [place] [address] 51y, F Registration Date/Time: 01/03/2017 Substance abuse- alcohol, marijuana with intoxication. INSTRUCTIONS No driving or operating machinery while taking medication. Warnings: GENERAL WARNINGS: Return or contact your physician immediately if your condition worsens or changes unexpectedly, if not improving as expected, or if other problems arise. Understanding of the discharge instructions verbalized by patient and family. ADDITIONAL INFORMATION Alcohol Intoxication Alcohol intoxication occurs when you drink alcohol faster than your liver can remove it from your system. Alcohol intoxication affects your judgment and coordination. Very high blood alcohol levels can cause coma, very slow breathing and even . If you drink alcohol every day, this may gradually cause permanent damage to your liver, brain, heart, pancreas and other organs. Alcohol use during may cause permanent damage to the growing baby. Home Care: Do not drink any more alcohol. DO NOT DRIVE until all effects of the alcohol have worn off. Get lots of rest over the next few days. Drink plenty of water and other non-alcoholic liquids. Try to eat regular meals. If you have been drinking heavily on a daily basis, you may go through alcohol withdrawl. This is also called the shakes or DTs. The usual symptoms last 3 to 4 days and may include nervousness, shakiness, nausea, sweating or sleeplessness. During this time, it is best that you stay with family or friends who can help and support you. You can also admit yourself to a residential detox program. If your symptoms are severe, contact your doctor for medicines to help. Follow Up: If alcohol is causing a problem in your life, these and other organizations can help you: Alcoholics Anonymous offers support through a self-help fellowship. There are no dues or fees. See the Yellow Pages and call for time and place of meetings. www.aa.org [employer] offers support to families of alcohol users. 130.204.9617 www.al-anon.org National [place] On Alcoholism And Drug Dependence 297-813-0076 www.ncadd.org There are also inpatient or residential alcohol detox programs. Check the Internet or phonebook Yellow Pages under Drug Abuse & Treatment Centers. Get Prompt Medical Attention if any of the following occur: there) Marijuana Abuse Marijuana is the most widely used illegal drug in the [place]. It is called by various names such as pot, weed, blunts, grass, reefer, ganja, hash, hashish. It is usually smoked but can be mixed with foods or brewed as a tea. It is sometimes sold with PCP (Marcial Dust) or amphetamine mixed in it. These drugs can cause other harmful side effects. Marijuana can cause the following effects: Changes in mood (stimulated, happy, drowsy, depressed, paranoid) Hallucinations Increased heart rate and blood pressure Increased appetite Time distortion, difficulty concentrating, impaired memory Lung damage (similar to cigarettes with chronic cough, wheezing, frequent colds and bronchitis) You can become psychologically dependent on marijuana. That means the craving to use the drug is emotional or psychological rather than due to physical withdrawal. Is Marijuana Running Your Life? Here are some of the signs: Relying on marijuana to feel good, forget problems, deal with stress or to relax Wanting to be alone most of the time or only with others who use drugs Losing interest in things that used to be important Changes in school or job performance or attendance Spending a lot of time thinking about how to get marijuana Stealing or selling your things so you can buy marijuana Unable to stop using even though you may want to quit Increasing anxiety, anger,or depression Sleeping too much, changes in eating habits (weight loss or gain) Needing to use more to get the same effect Home Care Once you have become addicted to any drug, quitting is hard to do. Most people find they can't quit without help. So, dont try to do this alone. Talk to someone you trust who can support you. Seek professional help. Avoid people and places where drugs are used. That only increases the temptation to use. Follow Up with your doctor or as advised by our staff. For more information or a referral to a treatment center in your area, contact: Your local mental health center or the National Alcohol and Substance Abuse Information Center (766)-754-9202 www.addictioncareoptions.com National [place] on Alcoholism and Drug Dependence 768-757-GGAG www.ncadd.org Marijuana Anonymous 942-290-8502 www.marijuana-anonymous.org Get Prompt Medical Attention if any of the following occur: You feel extreme depression, fear, anxiety, or anger toward yourself or others You feel out of control You feel that you may try to harm yourself or another You have been given the following additional information: Alcohol Intoxication Marijuana Abuse No driving or operating machinery while taking medication. (Electronically signed by Parag Goel MD 01/06/2017 15:43)
== END 2017-01-03 06:51 | disposition home or self-care (01) ==
LOC: ED SRH 02:38
DX: F10.129 Alcohol abuse with intoxication, unspecified (principal); F12.90 Cannabis use, unspecified, uncomplicated; R55 Syncope and collapse; R41.82 Altered mental status, unspecified; Z79.899 Other long term (current) drug therapy
CPT/HCPCS: 81460; 90004; 90100; 92010; 92235; 92530; 92760; 92761; 92762; 92763; 92764; 92765; 92766; 92767; 93070; 95059